=== PATIENT | male | born 1990 | race Caucasian/White ===

== ENCOUNTER 2020-09-26 07:42 | Emergency (ER) | payer SELFPAY ==
[~2020-09-26] VITALS: Ht 188 cm; Wt 77.1 kg
[~2020-09-26 07:42] MED LIST: Cleocin HCl150 MG PO; HYDACE5 PO; IBUP600 PO; NAPR220 PO
== END 2020-09-26 08:03 | disposition home or self-care (01) ==
LOC: ER 07:42
DX: S01.511A Laceration without foreign body of lip, initial encounter (principal); F17.200 Nicotine dependence, unspecified, uncomplicated
CPT/HCPCS: 99282